=== PATIENT | male | born 1965 | race Caucasian/White ===

== ENCOUNTER 2024-05-26 08:23 | Day surgery (SDC) | payer OTHER ==
[2024-05-26] MEDS: Lactated Ringers 1,000 ML IV SCH (08:42)
[2024-05-26] MEDS ORDERED: fentaNYL 100 MCG/2 ML SDV ONE (09:13)
[2024-05-26] MEDS ORDERED: Propofol 200 MG/20 ML SDV ONE (09:13)
== END 2024-05-26 12:00 | disposition home or self-care (01) ==
LOC: VM.SDS 08:23
PROVIDERS: ATTEND Family Medicine
DX: Z12.11 Encounter for screening for malignant neoplasm of colon (principal); R19.5 Other fecal abnormalities; D12.0 Benign neoplasm of cecum; D12.6 Benign neoplasm of colon, unspecified; I10 Essential (primary) hypertension; J01.00 Acute maxillary sinusitis, unspecified; Z79.899 Other long term (current) drug therapy
CPT/HCPCS: 00811; J2704; J3010; J7120